=== PATIENT | male | born 1940 | race Caucasian/White ===

== ENCOUNTER 2020-05-12 10:38 | Emergency (ER) | payer OTHER, MEDICARE, SELFPAY ==
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
[2020-05-12 11:13] VITALS: BP 158/102; PULSE 56; RESP 18; TEMP 36.4; O2SAT 97; BMI 33.2
--- NOTE | 2020-05-12 11:24 | PC.NURSE ---
PT TRANSPORTED TO CT BY STRETCHER WITH TECH
[2020-05-12 11:26] VITALS: O2SAT 97
[2020-05-12] MEDS: iodixanol 320 mg/mL 100mL Btl IV (11:51)
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
[2020-05-12] MEDS: tetanus-diphtheria tox (adult) 0.5 mL SDV IM (12:09)
[2020-05-12 12:47] VITALS: BP 175/78; PULSE 60; O2SAT 93
[2020-05-12 13:11] VITALS: PULSE 68; RESP 18; O2SAT 95
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
--- NOTE | 2020-05-12 13:16 | PC.NURSE ---
in patient's room to do discharge and education and pt continues to c/o pain with right hand. ed provider notified and in room. xrays ordered for evaluation
[2020-05-12 14:35] VITALS: BP 180/78; PULSE 60; O2SAT 95
== END 2020-05-12 14:35 | disposition home or self-care (01) ==
LOC: ER 13:05
PROVIDERS: Emergency Provider Physician Assistant
DX: S22.42XA Multiple fractures of ribs, left side, initial encounter for closed fracture (principal); S32.009A Unspecified fracture of unspecified lumbar vertebra, initial encounter for closed fracture; S62.234A Other nondisplaced fracture of base of first metacarpal bone, right hand, initial encounter for closed fracture; V20.4XXA Motorcycle driver injured in collision with pedestrian or animal in traffic accident, initial encounter; Z23 Encounter for immunization
CPT/HCPCS: 12345; 70450; 71260; 72125; 72128; 72131; 73080; 73130; 74177; 90471; 90714; 99283; 99284; Q9967